=== PATIENT | male | born 1980 | race African-American/Black ===

== ENCOUNTER 2021-02-04 09:33 | Emergency (ER) | payer OTHER ==
[~2021-02-04] VITALS: Ht 188 cm; Wt 84.5 kg
[2021-02-04] MEDS ORDERED: ECOT81TA5 PO (09:39)
[2021-02-04 10:12] LABS: HEMATOCRIT 44.5 % (42.0-52.0); HEMOGLOBIN 15.4 g/dl (13.5-17.5); MEAN CORPUSCULAR HEMOGLOBIN 30.1 pg (27.0-33.0); MEAN CORPUSCULAR HGB CONC 34.6 g/dl (32.0-36.5); MEAN CORPUSCULAR VOLUME 86.9 fl (80.0-96.0); PLATELET COUNT, AUTOMATED 187 10^3/uL (150-450); RED BLOOD COUNT 5.12 10^6/uL (4.30-6.10); WHITE BLOOD COUNT 2.2 10^3/uL (4.0-10.0)
--- NOTE | 2021-02-04 10:25 | REP ---
INDICATION: DYSPNEA/COUGH COMPARISON: None. TECHNIQUE: Portable AP view of the chest FINDINGS: The mediastinum and cardiac silhouette are within normal limits for portable technique. The lung gonzalez are clear without acute consolidation, effusion, or pneumothorax. Skeletal structures are intact. IMPRESSION: No acute cardiopulmonary process appreciated. <Electronically signed by Issa Lund > 02/04/21 1021
[2021-02-04 10:37] LABS: ALBUMIN 4.5 GM/DL (3.2-5.2); ALT/SGPT 27 U/L (12-78); BILIRUBIN,DIRECT 0.1 MG/DL (0.0-0.2); BILIRUBIN,TOTAL 0.7 MG/DL (0.2-1.0); BLOOD UREA NITROGEN 13 MG/DL (7-18); CALCIUM LEVEL 9.3 MG/DL (8.5-10.1); CARBON DIOXIDE LEVEL 24 MEQ/L (21-32); CHLORIDE LEVEL 109 MEQ/L (98-107); CK-MB VALUE MASS < 1.0 NG/ML (<3.6); CPK CREATINE PHOSPHOKINASE 198 U/L (39-308); CREATININE FOR GFR 1.32 MG/DL (0.70-1.30); GLOMERULAR FILTRATION RATE > 60.0 (>60); GLUCOSE, FASTING 95 MG/DL (70-100); MB/CK RELATIVE INDEX 0.51 (< OR =4); NT-PRO BNP 16 PG/ML (<125); POTASSIUM SERUM 4.2 MEQ/L (3.5-5.1); SODIUM LEVEL 139 MEQ/L (136-145); THYROXINE (T4) 7.8 UG/DL (4.5-12.0); TOTAL PROTEIN 7.9 GM/DL (6.4-8.2); TROPONIN I < 0.02 NG/ML (< 0.10)
[2021-02-04 10:44] LABS: ATYPICAL LYMPH 6 % (0-5); EOSINOPHILS 1 % (0-3); LYMPHOCYTES 55 % (16-44); MONOCYTES 7 % (0-5); NEUTROPHILS 31 % (28-66)
[2021-02-04 10:45] LABS: PLATELET ESTIMATE NORMAL (NORMAL)
[2021-02-04 11:51] LABS: MONO SCRN NEGATIVE (NEGATIVE)
[2021-02-04] MEDS ORDERED: ISOVUE-370 76% 100ML VIAL As Ordered ONE (11:59)
--- NOTE | 2021-02-04 12:37 | REP ---
INDICATION: r/o PE COMPARISON: None. TECHNIQUE: Axial contrast enhanced images from the thoracic inlet to the upper abdomen using pulmonary embolus technique with multiplanar re-formations. 75 ml Isovue 370 intravenous contrast material administered without complication. This CT examination was performed using the following dose reduction techniques: Automated exposure control, adjustment of mA and/or kv according to the patient's size, and use of iterative reconstruction technique. FINDINGS: Satisfactory enhancement of the pulmonary vasculature is achieved and no filling defects are identified to suggest pulmonary embolus. Further evaluation of the mediastinum demonstrates normal thoracic aorta, heart and pericardium. The bilateral lung gonzalez are well aerated and clear without consolidation pleural effusion or pneumothorax. Tracheobronchial tree is patent. No nodule or mass lesion is identified. No adenopathy noted. Surrounding musculoskeletal structures intact IMPRESSION: No evidence for pulmonary embolus. No acute mediastinal or pleural parenchymal process. <Electronically signed by Issa Lund > 02/04/21 [id number]
[2021-02-04 14:45] VITALS: BP 156/73
--- NOTE | 2021-02-04 21:09 | ECGEPIP ---
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
== END 2021-02-04 15:00 | disposition home or self-care (01) ==
LOC: M ED 09:33
DX: R06.09 Other forms of dyspnea (principal); R94.31 Abnormal electrocardiogram [ECG] [EKG]; D72.820 Lymphocytosis (symptomatic); B34.9 Viral infection, unspecified; Z79.82 Long term (current) use of aspirin
CPT/HCPCS: 71045; 71275; 80048; 80076; 82550; 82553; 83880; 84436; 84443; 84484; 85025; 86308; 87798; 93005; 93041; 94760; 99285; Q9967

== ENCOUNTER → 2021-03-12 | Outpatient (CLI) | payer OTHER ==
[~2021-03-12] MED LIST: ECOT81TA5 PO
--- NOTE | 2021-03-12 15:29 | PFTRPT ---
Site: [facility], [address] [place] [address], [address] ID: [id number] Name: KEMAL KELLEY Visit Date: 03/12/2021 Second ID: [id number] Referring Doctor: Josh Burns D.O. 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 The results of this test meet the ATS standards for acceptability and repeatability. Review Status: Not Reviewed Pre-Bronch Post-Bronch Pred Actual %Pred Actual %Chng SPIROMETRY FVC (L) 5.03 5.96 118 5.93 FEV1 (L) 4.12 4.82 116 4.93 2 FEV1/FVC (%) 82 81 98 83 2 FEF 25% (L/sec) 8.27 7.34 88 8.05 9 FEF 50% (L/sec) 5.04 5.46 108 5.06 -7 FEF 75% (L/sec) 1.99 2.58 129 3.23 25 FEF 25-75% (L/sec) 4.22 4.71 111 4.81 1 FEF Max (L/sec) 10.32 8.53 82 8.27 -3 FIVC (L) 5.49 5.59 1 FIF 50% (L/sec) 5.29 6.19 116 7.12 15 FIF Max (L/sec) 6.96 7.13 2 MVV (L/min) 181 190 105 Expiratory Time (sec) 6.84 7.41 8 Back Extrap Vol (L) 0.17 0.19 17 Time To FEFmax (sec) 0.169 0.151 -10 LUNG VOLUMES SVC (L) 5.72 5.79 101 IC (L) 3.80 3.49 91 ERV (L) 1.92 2.30 119 TGV (L) 3.93 3.81 96 RV (Pleth) (L) 2.01 1.51 75 TLC (Pleth) (L) 7.73 7.30 94 RV/TLC (Pleth) (%) 26 21 79 DIFFUSION DLCOunc (ml/min/mmHg) 35.08 35.48 101 DL/VA (ml/min/mmHg/L) 4.54 4.83 106 VA (L) 7.73 7.34 95 BHT (sec) 9.72 IVC (L) 5.63 TLC (SB) (L) 7.49 AIRWAYS RESISTANCE Raw (cmH2O/L/s) 1.45 0.58 40 Gaw (L/s/cmH2O) 1.03 1.72 166 sRaw (cmH2O*s) 4.76 2.08 43 sGaw (1/cmH2O*s) 0.20 0.48 240
== END ==
LOC: M CARPUL 14:52
PROVIDERS: ATTEND Family Medicine
DX: M94.0 Chondrocostal junction syndrome [Tietze] (principal)

== ENCOUNTER → 2021-06-19 | Outpatient (CLI) | payer OTHER ==
[~2021-06-19] MED LIST changes: +METHACHOLINE KIT (J7674) INH ONE
--- NOTE | 2021-06-19 15:56 | PFTRPT ---
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 Review Status: Not Reviewed Pre-Bronch Post-Bronch Pred Actual %Pred Actual %Chng SPIROMETRY FVC (L) 5.03 5.88 116 5.82 FEV1 (L) 4.11 4.91 119 4.73 -3 FEV1/FVC (%) 82 83 101 81 -2 FEF 25% (L/sec) 8.32 8.07 97 7.78 -3 FEF 50% (L/sec) 5.07 5.37 106 5.73 6 FEF 75% (L/sec) 1.99 3.05 153 2.01 -34 FEF 25-75% (L/sec) 4.21 5.15 122 4.76 -7 FEF Max (L/sec) 10.31 8.88 86 8.10 -8 FIVC (L) 5.84 5.72 -2 FIF 50% (L/sec) 5.28 9.89 187 7.73 -21 FIF Max (L/sec) 9.92 7.79 -21 Expiratory Time (sec) 7.16 7.24 1 Back Extrap Vol (L) 0.19 0.19 -4 Time To FEFmax (sec) 0.126 0.143 13
== END ==
LOC: M CARPUL 05-29 12:57
PROVIDERS: ATTEND Physician Assistant
DX: R06.00 Dyspnea, unspecified (principal)
CPT/HCPCS: 94070; J7674

== ENCOUNTER → 2022-05-08 | Outpatient (REF) | payer OTHER ==
[~2022-05-08] MED LIST changes: -METHACHOLINE KIT (J7674) INH ONE
[2022-05-08 17:16] LABS: HEMATOCRIT 44.7 % (42.0-52.0); HEMOGLOBIN 15.5 g/dl (13.5-17.5); MEAN CORPUSCULAR HEMOGLOBIN 30.9 pg (27.0-33.0); MEAN CORPUSCULAR HGB CONC 34.7 g/dl (32.0-36.5); PLATELET COUNT, AUTOMATED 179 10^3/uL (150-450); RED BLOOD COUNT 5.02 10^6/uL (4.30-6.10); WHITE BLOOD COUNT 3.1 10^3/uL (4.0-10.0)
[2022-05-08 19:55] LABS: SICKLE CELL SCREEN POSITIVE (NEGATIVE)
== END ==
LOC: M LAB REF 16:44
PROVIDERS: ATTEND Internal Medicine Pulmonary Disease
DX: R07.89 Other chest pain (principal)

== ENCOUNTER → 2022-05-10 | Outpatient (CLI) | payer OTHER | LOC: M PLALAB 12:29 | PROVIDERS: ATTEND Internal Medicine Pulmonary Disease | DX: R06.00 Dyspnea, unspecified (principal) ==